=== PATIENT | female | born 1985 | race Caucasian/White ===

== ENCOUNTER 2017-05-01 10:43 | Outpatient (CLI) | payer OTHER | END 2017-05-01 10:47 | disposition home or self-care (01) | LOC: NUCLEAR 10:43 | DX: M85.89 Other specified disorders of bone density and structure, multiple sites (principal) ==

== ENCOUNTER 2018-10-12 14:41 | Inpatient (IN) | payer OTHER ==
[~2018-10-12] VITALS: Ht 160 cm; Wt 165.0 kg
[2018-11-01] MEDS ORDERED: PRENATABS RX T1 EACH PO (19:58)
== END 2018-11-04 15:54 | disposition home or self-care (01) | DRG 807 ==
LOC: OB/GYN 10-19 14:45 → LDR 11-01 19:55 → SURG-SUITE 11-02 04:02 → OB/GYN 11-11 14:45
PROVIDERS: ADMIT Obstetrics & Gynecology
PROC: 3E033VJ Introduction of Other Hormone into Peripheral Vein, Percutaneous Approach (ICD-10-PCS; 2018-11-01)
PROC: 4A1HXCZ Monitoring of Products of Conception, Cardiac Rate, External Approach (ICD-10-PCS; 2018-11-01)
PROC: 10E0XZZ Delivery of Products of Conception, External Approach (ICD-10-PCS; principal; 2018-11-02)
PROC: 0HQ9XZZ Repair Perineum Skin, External Approach (ICD-10-PCS; 2018-11-02)
DX: O70.0 First degree perineal laceration during delivery (principal); Z37.0 Single live birth; Z3A.38 38 weeks gestation of pregnancy

== ENCOUNTER 2018-10-31 08:38 | Outpatient (CLI) | payer OTHER ==
[2018-11-01] MEDS ORDERED: PRENATABS RX T1 EACH PO (19:58)
== END 2018-10-31 13:00 | disposition home or self-care (01) ==
LOC: OBS/DEL 08:38
DX: O47.1 False labor at or after 37 completed weeks of gestation (principal); O35.8XX0 Maternal care for other (suspected) fetal abnormality and damage, not applicable or unspecified; Z34.83 Encounter for supervision of other normal pregnancy, third trimester